=== PATIENT | female | born 1985 ===

== ENCOUNTER → 2025-06-04 13:45 | Outpatient (BNVA) | payer OTHER, SELFPAY | PROVIDERS: PCP Family Medicine; Visit Provider Family Medicine | DX: R83.8 Other abnormal findings in cerebrospinal fluid (principal); G43.E09 Chronic migraine with aura, not intractable, without status migrainosus; R93.0 Abnormal findings on diagnostic imaging of skull and head, not elsewhere classified | CPT/HCPCS: 80053; 85025; 86038; 86140; 86617 ==